=== PATIENT | male | born 1970 | race Caucasian/White ===

== ENCOUNTER → 2020-12-31 | Outpatient (CLI) | payer BC | END | disposition home or self-care (01) | LOC: RADMRIMAIN 06:13 | PROVIDERS: ATTEND Physician Assistant | DX: Z53.9 Procedure and treatment not carried out, unspecified reason (principal) ==

== ENCOUNTER → 2025-02-01 | Outpatient (CLI) | payer BC ==
--- NOTE | 2025-02-01 23:06 | US ---
EXAMINATION TYPE: US scrotum with doppler. DATE OF EXAM: 02/01/2025 COMPARISON: NONE CLINICAL INDICATION: Male, 54 years old with history of [id number] LARGE TESTICLE; right side edema. TECHNIQUE: Grayscale, color Doppler and spectral Doppler imaging of the scrotum. FINDINGS: EXAM MEASUREMENTS: TESTICLES: Right Testicle: 6.1 x 4.0 x 4.9 cm Anechoic area seen measuring 5.2 x 3.6 x 4.3 cm. Left Testicle: 4.0 x 3.2 x 2.7 cm EPIDIDYMIS HEAD: Right Epididymis: Not visualized. Left Epididymis: 2.8 x 2.3 x 2.2 cm Cluster of cysts seen largest measuring 2.3 x 1.7 x 1.6 cm. Doppler performed to assess for testicular vascularity; good bilateral color flow and spectral wavefo margarita are seen. There is no evidence of testicular torsion. Presence of hydroceles: no Presence of varicoceles: no IMPRESSION: 1. 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 Short-term follow-up recommended in 6 months to ensu re stability. 2. Appropriate arterial and venous spectral waveforms to the testes. 3. Multiple left epididymal cysts. [facility], , 02/01/2025 11:04 PM
--- NOTE | 2025-02-01 23:08 | US ---
EXAMINATION TYPE: US extremity nonvasc mass LT DATE OF EXAM: 02/01/2025 COMPARISON: NONE CLINICAL INDICATION: Male, 54 years old with history of R22.32 MASS LUMP; lump on left upper arm. TECHNIQUE: Grayscale imaging of the left arm FINDINGS: Hyperechoic area seen measuring 5.2 x 2.5 x 2.9 cm suggestive of lipoma. No organizing f luid collection or lymphadenopathy. IMPRESSION: Hyperechoic lesion most compatible with lipoma measuring 5.2 cm. This can be confirmed wi th MRI or CT. [facility], , 02/01/2025 11:06 PM
== END | disposition home or self-care (01) ==
LOC: RADUSWWP 15:15
PROVIDERS: ATTEND Family Medicine
DX: N50.3 Cyst of epididymis (principal); R39.89 Other symptoms and signs involving the genitourinary system; R22.32 Localized swelling, mass and lump, left upper limb
CPT/HCPCS: 76870; 93975

== ENCOUNTER → 2025-03-13 | Outpatient (CLI) | payer BC ==
--- NOTE | 2025-03-13 14:59 | US ---
EXAMINATION TYPE: US scrotum with doppler. 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 FINDINGS: EXAM MEASUREMENTS: TESTICLES: Right Testicle: 6.2 x 5.1 x 3.9 cm - known cyst = 5.5 x 3.5 x 3.4cm, scrotolith seen Left Testicle: 4.0 x 3.4 x 2.7 cm EPIDIDYMIS HEAD: Right Epididymis: not seen Left Epididymis: 1.5 cm - epi cyst cluster, largest seen = 1.7 x 1.8 x 1.8cm Doppler performed to assess for testicular vascularity; good bilateral color flow and spectral wavefo margarita are seen. There is no evidence of testicular torsion. Presence of hydroceles: no Presence of varicoceles: no IMPRESSION: No evidence for acute process. Appropriate arterial and venous spectral waveforms to the testes. Known right testicular cyst and left epididymal cyst cluster. [facility], , 03/13/2025 2:57 PM
== END | disposition home or self-care (01) ==
LOC: RADUSWWP 14:23
PROVIDERS: ATTEND Urology
DX: N44.2 Benign cyst of testis (principal)
CPT/HCPCS: 76870; 93975